=== PATIENT | male | born 1965 | race African-American/Black ===

== ENCOUNTER 2024-08-13 17:07 | Inpatient (IN) | payer MEDICARE, OTHER ==
[~2024-08-13] VITALS: Ht 177.8 cm; Wt 98.9 kg
[2024-08-13 17:37] LABS: BASOPHILS % (AUTO) 0.4 % (0.0-2.0); EOSINOPHILS % (AUTO) 0.3 % (0.0-6.0); HEMATOCRIT 29 % (39-51); HEMOGLOBIN 9.5 g/dL (13.5-17.5); LYMPHOCYTES # (AUTO) 2.4 K/uL (0.8-4.8); LYMPHOCYTES % (AUTO) 20.4 % (20.0-44.0); MEAN CORPUSCULAR HEMOGLOBIN 21 PG (26.0-33.0); MEAN CORPUSCULAR HGB CONC 33 g/dl (31.0-36.0); MEAN CORPUSCULAR VOLUME 66 fL (80-96); MONOCYTES # (AUTO) 1.1 K/uL (0.1-1.30); MONOCYTES % (AUTO) 9.5 % (2.0-12.0); NEUTROPHILS # (AUTO) 8.2 K/uL (1.8-8.9); NEUTROPHILS % (AUTO) 69.4 % (43.0-81.0); PLATELET COUNT (AUTO) 312 K/uL (150-450); RED BLOOD CELL COUNT(AUTO) 4.45 MIL/uL (4.5-6.0); RED CELL DISTRIBUTION WIDTH 17.1 % (11.5-15.0); WHITE BLOOD COUNT (AUTO) 11.8 K/uL (4.3-11.0)
[2024-08-13 17:51] LABS: INR 1.22 (0.91-1.10); PARTIAL THROMBOPLASTIN TIME 30.8 SEC (24.3-34.3); PROTHROMBIN TIME 12.8 SECS (9.2-11.1)
[2024-08-13] MEDS ORDERED: CALC500T88 PO (17:56)
[2024-08-13] MEDS ORDERED: AMLO5TAB4 PO (17:56)
[2024-08-13] MEDS ORDERED: METO50TA16 PO (17:56)
[2024-08-13] MEDS ORDERED: MULT-213 PO (17:56)
[2024-08-13] MEDS ORDERED: DULO30CA2 PO (17:56)
[2024-08-13] MEDS ORDERED: ATOR40TA PO (17:56)
[2024-08-13] MEDS ORDERED: CHLO25TA2 PO (17:56)
[2024-08-13] MEDS ORDERED: ASPI-992 PO (17:56)
[2024-08-13] MEDS ORDERED: ACET-868 PO (17:56)
[2024-08-13] MEDS ORDERED: POLY17PO4 PO (17:56)
[2024-08-13] MEDS ORDERED: DANT25CA PO (17:56)
[2024-08-13] MEDS ORDERED: CALC500T53 PO (17:56)
[2024-08-13] MEDS ORDERED: BISA10SU11 RC (17:56)
[2024-08-13] MEDS ORDERED: MELA3TAB41 PO (17:56)
[2024-08-13] MEDS ORDERED: DOCU100T2 PO (17:56)
[2024-08-13] MEDS ORDERED: IBUP-1955 PO (17:56)
[2024-08-13] MEDS ORDERED: MAGN400O6 PO (17:56)
[2024-08-13] MEDS ORDERED: SENN8.6T19 PO (17:56)
[2024-08-13] MEDS ORDERED: CHOL100043 PO (17:56)
[2024-08-13] MEDS ORDERED: HYDR-4209 PO (17:56)
[2024-08-13] MEDS ORDERED: NA P133E RC (17:56)
[2024-08-13] MEDS ORDERED: [UNRECOGNIZED DRUG - CODE] PO (17:56)
[2024-08-13] MEDS ORDERED: EPLE25TA10 PO (17:56)
[2024-08-13] MEDS ORDERED: ASCO-352 PO (17:56)
[2024-08-13] MEDS ORDERED: LEVE500T20 PO (17:56)
[2024-08-13] MEDS ORDERED: FERR325T28 PO (17:56)
[2024-08-13 18:01] LABS: ALCOHOL, BLOOD < 3 mg/dL (0-10); CARBON DIOXIDE 25 mmol/L (21-32); CHLORIDE 103 mmol/L (98-107); CREATININE 1.6 mg/dL (0.6-1.3); GLUCOSE 99 mg/dL (74-106); POTASSIUM 3.1 mmol/L (3.5-5.1); SERUM AMMONIA 31 umol/L (11-32); SODIUM SERUM 140 mmol/L (136-145); UREA NITROGEN, BLOOD 38 mg/dL (7-18)
[2024-08-13 18:19] LABS: ALANINE AMINOTRANSFERASE 17 U/L (12-78); ALBUMIN 2.7 g/dL (3.4-5.0); ALKALINE PHOSPHATASE 126 U/L (46-116); ASPARTATE AMINOTRANSFERASE 18 U/L (15-37); BILIRUBIN,DIRECT 0.3 mg/dL (0.0-0.2); BILIRUBIN,TOTAL 1.3 mg/dL (0.2-1.0); NT-PRO BNP 1189 pg/mL (0-125); TOTAL PROTEIN, SERUM 8.9 g/dL (6.4-8.2)
[2024-08-13] MEDS ORDERED: POTASSIUM CHLORIDE 20 MEQ POWDER PACKET ONE (19:26)
[2024-08-13] MEDS: POTASSIUM CHLORIDE 20 MEQ POWDER PACKET PO ONE (19:30)
[2024-08-13 20:00] VITALS: BP 123/66; TEMP 98.2; O2SAT 96
[2024-08-13 20:31] LABS: CANNABINOID, URINE NEGATIVE (NEGATIVE); COCCAINE, URINE NEGATIVE (NEGATIVE); PHENCYCLIDINE SCREEN,URINE NEGATIVE (NEGATIVE)
[2024-08-13 21:00] VITALS: BP 123/66; TEMP 98.2; O2SAT 96
[2024-08-13] MEDS ORDERED: EPLERENONE 75 MG PO SCH (21:00)
[2024-08-13] MEDS ORDERED: ONDANSETRON HCL/PF 4 MG/2 ML VIAL IVP PRN (21:00)
[2024-08-13] MEDS ORDERED: BISACODYL SUPP (10 MG) 10 MG/SUPP.RECT SUPP.RECT RC PRN (21:00)
[2024-08-13] MEDS: IV NS 0.9% 1,000 ML IV PRN (21:16)
[2024-08-13] MEDS: ATORVASTATIN 40 MG TABLET PO SCH (21:49)
[2024-08-13] MEDS: SENNOSIDES 8.6 MG TABLET PO SCH (21:49)
[2024-08-13] MEDS: FERROUS SULFATE (325 MG) 325 MG/TAB TABLET PO SCH (21:49)
[2024-08-13] MEDS: PREGABALIN 100 MG CAPSULE PO SCH (21:50)
[2024-08-13] MEDS: AMLODIPINE BESYLATE 5 MG TABLET PO SCH (21:50)
[2024-08-13] MEDS: LEVETIRACETAM (250 MG) 250 MG TABLET PO SCH (21:50)
[2024-08-13] MEDS: ENOXAPARIN SODIUM 40 MG/0.4 ML DISP.SYRIN SQ SCH (21:51)
[2024-08-13 22:17] LABS: AMPHETAMINE, URINE NEGATIVE (NEGATIVE); BARBITURATE, URINE NEGATIVE (NEGATIVE); BENZODIAZEPINE, URINE NEGATIVE (NEGATIVE); OPIATE, URINE NEGATIVE (NEGATIVE)
[2024-08-13] MEDS ORDERED: DANTROLENE SODIUM 25 MG CAPSULE ONE (22:36)
[2024-08-13] MEDS: DANTROLENE SODIUM 25 MG CAPSULE PO SCH (22:46)
[2024-08-14] VITALS (7 sets, daily range): BP systolic 101–160; BP diastolic 53–71; TEMP 97.9–99.6; O2SAT 96–98
[2024-08-14 00:55] LABS: ANISOCYTOSIS 1+; BASOPHILS % (MANUAL) 0 % (0.0-2.0); EOSINOPHILS % (MANUAL) 0 % (0-4); LYMPHOCYTES % (MANUAL) 18 % (16-48); MONOCYTES % (MANUAL) 9 % (0-11.0); NEUTROPHILS % (MANUAL) 73 (42-76); OVALOCYTES 1+; PLATELET ESTIMATE ADEQUATE
[2024-08-14 07:08] LABS: BASOPHILS % (AUTO) 0.2 % (0.0-2.0); EOSINOPHILS % (AUTO) 0.2 % (0.0-6.0); HEMATOCRIT 29 % (39-51); HEMOGLOBIN 9.4 g/dL (13.5-17.5); LYMPHOCYTES # (AUTO) 1.5 K/uL (0.8-4.8); MEAN CORPUSCULAR HEMOGLOBIN 22 PG (26.0-33.0); MEAN CORPUSCULAR HGB CONC 32 g/dl (31.0-36.0); MEAN CORPUSCULAR VOLUME 67 fL (80-96); MONOCYTES # (AUTO) 0.9 K/uL (0.1-1.30); MONOCYTES % (AUTO) 8.5 % (2.0-12.0); NEUTROPHILS # (AUTO) 8.2 K/uL (1.8-8.9); NEUTROPHILS % (AUTO) 77.1 % (43.0-81.0); PLATELET COUNT (AUTO) 302 K/uL (150-450); RED BLOOD CELL COUNT(AUTO) 4.35 MIL/uL (4.5-6.0); WHITE BLOOD COUNT (AUTO) 10.6 K/uL (4.3-11.0)
[2024-08-14 07:09] LABS: CALCIUM, SERUM 8.8 mg/dL (8.5-10.1); CREATININE 1.3 mg/dL (0.6-1.3); MAGNESIUM 2.2 mg/dL (1.8-2.4); PHOSPHORUS 3.3 mg/dL (2.5-4.9); POTASSIUM 3.3 mmol/L (3.5-5.1)
[2024-08-14] MEDS: CALCIUM CARBONATE (1250) 500 MG TABLET PO SCH (09:28)
[2024-08-14] MEDS: DULOXETINE HCL 30 MG CAPSULE.DR PO SCH (09:28)
[2024-08-14] MEDS: POLYETHYLENE GLYCOL 3350 17 GM POWD.PACK PO SCH (09:28)
[2024-08-14] MEDS: MULTIVITAMIN/LUTEIN/MINERALS 1 TAB PO SCH (09:29)
[2024-08-14] MEDS: ASPIRIN 325 MG TABLET PO SCH (09:29)
[2024-08-14] MEDS: CHOLECALCIFEROL 1,000 UNIT TABLET (VIT D3) PO SCH (09:29)
[2024-08-14] MEDS: ASCORBIC ACID 500 MG TABLET PO SCH (09:29)
[2024-08-14] MEDS: DOCUSATE SODIUM 100 MG CAPSULE PO SCH (09:29)
[2024-08-14] MEDS: POTASSIUM CHLORIDE 20 MEQ TAB.PRT.SR PO SCH (10:34)
[2024-08-14] MEDS: CEFEPIME 1 GM in IV D5W 50 ML IV SCH (12:01)
[2024-08-14 14:01] LABS: THYROID STIMULATING HORMONE 0.55 uIU/mL (0.358-3.74)
[2024-08-14] MEDS ORDERED: IOHEXOL-350 100 ML VIAL IV ONE (14:55)
[2024-08-14] MEDS ORDERED: IV NS 0.9% 250 ML IV ONE (14:56)
[2024-08-14] MEDS: SOD FERRIC GLUC 125 MG in IV NS 0.9% 100 ML IV SCH (15:49)
[2024-08-14] MEDS: ACETAMINOPHEN 325 MG TABLET PO PRN (18:33)
[2024-08-14 18:54] LABS: APPEARANCE,URINE CLOUDY (CLEAR); BILIRUBIN,URINE 1+ (NEGATIVE); BLOOD, URINE TRACE-INTA Ery/uL (NEGATIVE); COLOR,URINE YELLOW (YELLOW); KETONES,URINE TRACE mg/dL (NEGATIVE); LEUKOCYTE ESTERASE ,URINE 2+ (NEGATIVE); NITRITE, URINE POSITIVE (NEGATIVE); PROTEIN,URINE 1+ mg/dl (NEGATIVE); UGLUCOSE NEGATIVE (NEGATIVE)
[2024-08-14 19:36] LABS: URINE AMORPHOUS URATE Many /HPF (None Seen)
[2024-08-14 19:37] LABS: BACTERIA,URINE Many /HPF (None Seen); SQUAMOUS EPITHELIAL CELL,UR None Seen /HPF (None Seen)
[2024-08-14 19:38] LABS: ADD URINE CULTURE YES
[2024-08-14 19:39] LABS: RBC,URINE 0-2 /HPF (0-2)
[2024-08-15] VITALS (7 sets, daily range): BP systolic 115–165; BP diastolic 56–90; TEMP 97.3–100.2; O2SAT 96–99
[2024-08-15 08:06] LABS: FOLIC ACID 3.8 ng/mL (>3.0)
[2024-08-15 15:07] LABS: BASOPHILS % (AUTO) 0.2 % (0.0-2.0); HEMATOCRIT 26 % (39-51); HEMOGLOBIN 8.4 g/dL (13.5-17.5); LYMPHOCYTES # (AUTO) 1.6 K/uL (0.8-4.8); LYMPHOCYTES % (AUTO) 12.7 % (20.0-44.0); MEAN CORPUSCULAR HEMOGLOBIN 21 PG (26.0-33.0); MEAN CORPUSCULAR HGB CONC 32 g/dl (31.0-36.0); MEAN CORPUSCULAR VOLUME 66 fL (80-96); MONOCYTES % (AUTO) 7.8 % (2.0-12.0); NEUTROPHILS % (AUTO) 79.3 % (43.0-81.0); PLATELET COUNT (AUTO) 277 K/uL (150-450); RED BLOOD CELL COUNT(AUTO) 3.99 MIL/uL (4.5-6.0); RED CELL DISTRIBUTION WIDTH 17.1 % (11.5-15.0); WHITE BLOOD COUNT (AUTO) 12.7 K/uL (4.3-11.0)
[2024-08-15 16:10] LABS: ANISOCYTOSIS 2+; BASOPHILS % (MANUAL) 0 % (0.0-2.0); EOSINOPHILS % (MANUAL) 0 % (0-4); LYMPHOCYTES % (MANUAL) 13 % (16-48); MONOCYTES % (MANUAL) 6 % (0-11.0); NEUTROPHILS % (MANUAL) 81 (42-76); OVALOCYTES 1+; PLATELET ESTIMATE ADEQUATE
[2024-08-15 16:31] LABS: CALCIUM, SERUM 8.7 mg/dL (8.5-10.1); CREATININE 1.2 mg/dL (0.6-1.3); POTASSIUM 2.9 mmol/L (3.5-5.1)
[2024-08-16] VITALS: BP 121/55; TEMP 97.3; O2SAT 98
[2024-08-16 00:44] VITALS: BP 121/55; TEMP 97.3; O2SAT 98
[2024-08-16] MEDS: POTASSIUM CHLORIDE 10 MEQ/50 ML PREMIXED IVPB FOR PERIPHERAL LINE IV SCH (03:30)
[2024-08-16 03:54] VITALS: BP 122/73; TEMP 97.2; O2SAT 98
[2024-08-16 04:00] VITALS: BP 122/73; TEMP 97.2; O2SAT 98
[2024-08-16 08:00] VITALS: BP 136/71; TEMP 98.5
[2024-08-16 20:00] VITALS: BP 108/60; TEMP 99.7; O2SAT 93
[2024-08-17] VITALS: BP 97/69; TEMP 99.1; O2SAT 94
[2024-08-17 04:00] VITALS: BP 134/68; TEMP 99; O2SAT 97
[2024-08-17] MEDS: IV NS 0.9% 1,000 ML IV PRN (04:35)
[2024-08-17 08:00] VITALS: BP 198/60; O2SAT 97
== END 2024-08-17 10:55 | disposition short-term general hospital (02) | DRG 67 ==
LOC: ER 17:19 → TELE 19:27
PROVIDERS: ADMIT Nurse Practitioner Acute Care; ATTEND Nurse Practitioner Acute Care
DX: I66.02 Occlusion and stenosis of left middle cerebral artery (principal); G93.41 Metabolic encephalopathy; I21.A1 Myocardial infarction type 2; N17.0 Acute kidney failure with tubular necrosis; J69.0 Pneumonitis due to inhalation of food and vomit; E44.0 Moderate protein-calorie malnutrition; N39.0 Urinary tract infection, site not specified; D68.69 Other thrombophilia; I69.354 Hemiplegia and hemiparesis following cerebral infarction affecting left non-dominant side; I50.30 Unspecified diastolic (congestive) heart failure; E87.6 Hypokalemia; E66.01 Morbid (severe) obesity due to excess calories; E88.09 Other disorders of plasma-protein metabolism, not elsewhere classified; G40.909 Epilepsy, unspecified, not intractable, without status epilepticus; M19.90 Unspecified osteoarthritis, unspecified site; M89.8X9 Other specified disorders of bone, unspecified site; Z79.82 Long term (current) use of aspirin; Z95.1 Presence of aortocoronary bypass graft; Z95.5 Presence of coronary angioplasty implant and graft; Z20.822 Contact with and (suspected) exposure to COVID-19; Z74.09 Other reduced mobility; I11.0 Hypertensive heart disease with heart failure; D50.9 Iron deficiency anemia, unspecified; G93.89 Other specified disorders of brain; I35.1 Nonrheumatic aortic (valve) insufficiency; Z68.31 Body mass index [BMI] 31.0-31.9, adult; B96.89 Other specified bacterial agents as the cause of diseases classified elsewhere
CPT/HCPCS: 36415; 70450-TC; 70496-TC; 70498-TC; 71045-TC; 80048-TC; 80061-TC; 80076-TC; 81001; 82140-TC; 82607-TC; 82962-TC; 83735-TC; 83880; 83921; 84100-TC; 84425; 84443-TC; 84484-TC; 85025-TC; 85730-TC; 87081-TC; 87086-TC; 92526; 92611-TC; 93307-TC; 93970-TC; A4223; G0378; G0480; J0692; J1650; J2916; J3480; J7030; J7050; J7060; Q9967

== ENCOUNTER 2024-08-19 15:57 | Inpatient (IN) | payer MEDICARE, OTHER ==
[~2024-08-19] VITALS: Ht 177.8 cm; Wt 100.7 kg
[~2024-08-19 15:57] MED LIST: ACET-868 PO; AMLO5TAB4 PO; ASCO-352 PO; ASPI-992 PO; ATOR40TA PO; BISA10SU11 RC; CALC500T53 PO; CALC500T88 PO; CHLO25TA2 PO; CHOL100043 PO; DANT25CA PO; DOCU100T2 PO; DULO30CA2 PO; EPLE25TA10 PO; FERR325T28 PO; HYDR-4209 PO; IBUP-1955 PO; LEVE500T20 PO; MAGN400O6 PO; MELA3TAB41 PO; METO50TA16 PO; MULT-213 PO; NA P133E RC; POLY17PO4 PO; SENN8.6T19 PO; [UNRECOGNIZED DRUG - CODE] PO
[2024-08-19] MEDS ORDERED: CLOP75TA15 PO (16:44)
[2024-08-19 18:00] VITALS: BP 123/76; TEMP 98.1; O2SAT 98
[2024-08-19] MEDS ORDERED: ACETAMINOPHEN 325 MG TABLET PO PRN (18:00)
[2024-08-19] MEDS ORDERED: Z GUARD REMEDY 4 OZ OINT TP PRN (18:00)
[2024-08-19] MEDS ORDERED: MAG HYDROX/AL HYDROX/SIMETH 30 ML UDC PO PRN (18:00)
[2024-08-19] MEDS ORDERED: CALCIUM CARBONATE (1250) 500 MG TABLET PO PRN (18:00)
[2024-08-19] MEDS ORDERED: MAGNESIUM HYDROXIDE 30 ML UDC PO PRN (18:00)
[2024-08-19 19:06] LABS: INR 1.36 (0.91-1.10); PARTIAL THROMBOPLASTIN TIME 30.2 SEC (24.3-34.3); PROTHROMBIN TIME 14.1 SECS (9.2-11.1)
[2024-08-19 20:00] VITALS: BP 113/58; TEMP 98.6; O2SAT 100
[2024-08-19] MEDS: HEPARIN SODIUM, PORCINE 5000 UNITS/1 ML VIAL IV ONE (20:31)
[2024-08-19] MEDS: IV NS 0.9% 1,000 ML IV PRN (20:54)
[2024-08-19] MEDS: MELATONIN 3 MG TABLET PO SCH (20:54)
[2024-08-19] MEDS: HEPARIN INFUSION/D5W 500 ML IV PRN (21:20)
[2024-08-19] MEDS: ATORVASTATIN 40 MG TABLET PO SCH (22:16)
[2024-08-19] MEDS: SENNOSIDES 8.6 MG TABLET PO SCH (22:16)
[2024-08-19] MEDS: AMLODIPINE BESYLATE 5 MG TABLET PO SCH (22:18)
[2024-08-19] MEDS: ONDANSETRON HCL/PF 4 MG/2 ML VIAL IVP PRN (23:00)
[2024-08-20] VITALS (7 sets, daily range): BP systolic 117–160; BP diastolic 53–72; TEMP 97.5–98.8; O2SAT 10–100
[2024-08-20 03:32] LABS: BASOPHILS % (AUTO) 0.2 % (0.0-2.0); EOSINOPHILS % (AUTO) 0.1 % (0.0-6.0); HEMATOCRIT 30 % (39-51); HEMOGLOBIN 9.7 g/dL (13.5-17.5); LYMPHOCYTES # (AUTO) 1.6 K/uL (0.8-4.8); LYMPHOCYTES % (AUTO) 12.2 % (20.0-44.0); MEAN CORPUSCULAR HEMOGLOBIN 22 PG (26.0-33.0); MEAN CORPUSCULAR HGB CONC 32 g/dl (31.0-36.0); MEAN CORPUSCULAR VOLUME 67 fL (80-96); MONOCYTES % (AUTO) 7.8 % (2.0-12.0); NEUTROPHILS # (AUTO) 10.8 K/uL (1.8-8.9); NEUTROPHILS % (AUTO) 79.7 % (43.0-81.0); PLATELET COUNT (AUTO) 342 K/uL (150-450); RED BLOOD CELL COUNT(AUTO) 4.47 MIL/uL (4.5-6.0); RED CELL DISTRIBUTION WIDTH 17.3 % (11.5-15.0); WHITE BLOOD COUNT (AUTO) 13.5 K/uL (4.3-11.0)
[2024-08-20 03:43] LABS: CALCIUM, SERUM 8.8 mg/dL (8.5-10.1); CREATININE 1.4 mg/dL (0.6-1.3); MAGNESIUM 2.1 mg/dL (1.8-2.4); PHOSPHORUS 4.1 mg/dL (2.5-4.9)
[2024-08-20 04:20] LABS: LYMPHOCYTES % (MANUAL) 22 % (16-48); MONOCYTES % (MANUAL) 5 % (0-11.0); NEUTROPHILS % (MANUAL) 73 (42-76)
[2024-08-20 04:21] LABS: ANISOCYTOSIS 2+; OVALOCYTES 1+; PLATELET ESTIMATE ADEQUATE
[2024-08-20 08:24] LABS: INR 1.51 (0.91-1.10); PROTHROMBIN TIME 15.6 SECS (9.2-11.1)
[2024-08-20 08:28] LABS: PARTIAL THROMBOPLASTIN TIME 100.2 SEC (24.3-34.3)
[2024-08-20] MEDS: DANTROLENE SODIUM 25 MG CAPSULE PO SCH (08:35)
[2024-08-20] MEDS: MULTIVIT W/MINERALS 1 TAB TABLET PO SCH (08:35)
[2024-08-20] MEDS: FERROUS SULFATE (325 MG) 325 MG/TAB TABLET PO SCH (08:35)
[2024-08-20] MEDS: CHOLECALCIFEROL 1,000 UNIT TABLET (VIT D3) PO SCH (08:35)
[2024-08-20] MEDS: ASCORBIC ACID 500 MG TABLET PO SCH (08:35)
[2024-08-20] MEDS: LEVETIRACETAM (250 MG) 250 MG TABLET PO SCH (08:35)
[2024-08-20] MEDS: DULOXETINE HCL 30 MG CAPSULE.DR PO SCH (08:35)
[2024-08-20] MEDS: ASPIRIN 325 MG TABLET PO SCH (08:36)
[2024-08-20] MEDS: POLYETHYLENE GLYCOL 3350 17 GM POWD.PACK PO SCH (08:36)
[2024-08-20] MEDS: CLOPIDOGREL BISULFATE 75 MG TABLET PO SCH (08:36)
[2024-08-20] MEDS: METOPROLOL TARTRATE 50 MG TABLET PO SCH (08:38)
[2024-08-20] MEDS ORDERED: EPLERENONE 75 MG PO SCH (09:00)
[2024-08-20] MEDS: POTASSIUM CHLORIDE 20 MEQ POWDER PACKET PO SCH (09:29)
[2024-08-20 13:13] LABS: INR 1.51 (0.91-1.10); PROTHROMBIN TIME 15.6 SECS (9.2-11.1)
[2024-08-20 13:18] LABS: PARTIAL THROMBOPLASTIN TIME 132.5 SEC (24.3-34.3)
[2024-08-20] MEDS: APIXABAN 5 MG TABLET PO SCH (16:41)
[2024-08-20] MEDS: PIPERACILLIN /TAZOBACTAM 3.375 G in IV D5W 50 ML IV SCH (17:15)
[2024-08-21] VITALS (7 sets, daily range): BP systolic 66–184; BP diastolic 44–62; TEMP 93.6–98.2; O2SAT 96–100
[2024-08-21 16:45] LABS: BASOPHILS % (AUTO) 0.3 % (0.0-2.0); EOSINOPHILS % (AUTO) 0.3 % (0.0-6.0); HEMATOCRIT 27 % (39-51); HEMOGLOBIN 8.6 g/dL (13.5-17.5); LYMPHOCYTES # (AUTO) 1.6 K/uL (0.8-4.8); LYMPHOCYTES % (AUTO) 15.8 % (20.0-44.0); MEAN CORPUSCULAR HEMOGLOBIN 22 PG (26.0-33.0); MEAN CORPUSCULAR HGB CONC 32 g/dl (31.0-36.0); MEAN CORPUSCULAR VOLUME 69 fL (80-96); MONOCYTES # (AUTO) 0.8 K/uL (0.1-1.30); MONOCYTES % (AUTO) 7.3 % (2.0-12.0); NEUTROPHILS # (AUTO) 7.9 K/uL (1.8-8.9); NEUTROPHILS % (AUTO) 76.3 % (43.0-81.0); PLATELET COUNT (AUTO) 278 K/uL (150-450); RED BLOOD CELL COUNT(AUTO) 3.94 MIL/uL (4.5-6.0); RED CELL DISTRIBUTION WIDTH 18.3 % (11.5-15.0); WHITE BLOOD COUNT (AUTO) 10.4 K/uL (4.3-11.0)
[2024-08-21 17:10] LABS: ALBUMIN 2.2 g/dL (3.4-5.0); BILIRUBIN,TOTAL 0.8 mg/dL (0.2-1.0); CALCIUM, SERUM 8.3 mg/dL (8.5-10.1); CREATININE 1.6 mg/dL (0.6-1.3); MAGNESIUM 2.1 mg/dL (1.8-2.4); PHOSPHORUS 3.9 mg/dL (2.5-4.9); POTASSIUM 3.1 mmol/L (3.5-5.1); TOTAL PROTEIN, SERUM 7.7 g/dL (6.4-8.2)
[2024-08-21 17:56] LABS: BASOPHILS % (MANUAL) 0 % (0.0-2.0); EOSINOPHILS % (MANUAL) 2 % (0-4); LYMPHOCYTES % (MANUAL) 18 % (16-48); MONOCYTES % (MANUAL) 6 % (0-11.0); NEUTROPHILS % (MANUAL) 74 (42-76); PLATELET ESTIMATE ADEQUATE
[2024-08-21 17:57] LABS: ANISOCYTOSIS 1+; OVALOCYTES 1+
[2024-08-21] MEDS: POTASSIUM CHLORIDE 20 MEQ TAB.PRT.SR PO ONE (18:20)
[2024-08-22] VITALS (8 sets, daily range): BP systolic 117–170; BP diastolic 29–58; TEMP 97.7–98.4; O2SAT 97–100
[2024-08-22 08:06] LABS: BASOPHILS % (AUTO) 0.4 % (0.0-2.0); EOSINOPHILS % (AUTO) 0.3 % (0.0-6.0); HEMATOCRIT 23 % (39-51); HEMOGLOBIN 7.5 g/dL (13.5-17.5); LYMPHOCYTES # (AUTO) 1.5 K/uL (0.8-4.8); LYMPHOCYTES % (AUTO) 15.2 % (20.0-44.0); MEAN CORPUSCULAR HEMOGLOBIN 22 PG (26.0-33.0); MEAN CORPUSCULAR HGB CONC 32 g/dl (31.0-36.0); MEAN CORPUSCULAR VOLUME 69 fL (80-96); MONOCYTES # (AUTO) 0.7 K/uL (0.1-1.30); NEUTROPHILS # (AUTO) 7.5 K/uL (1.8-8.9); NEUTROPHILS % (AUTO) 77.1 % (43.0-81.0); PLATELET COUNT (AUTO) 247 K/uL (150-450); RED BLOOD CELL COUNT(AUTO) 3.37 MIL/uL (4.5-6.0); RED CELL DISTRIBUTION WIDTH 17.9 % (11.5-15.0); WHITE BLOOD COUNT (AUTO) 9.7 K/uL (4.3-11.0)
[2024-08-22 08:18] LABS: CREATININE 1.3 mg/dL (0.6-1.3); POTASSIUM 3.1 mmol/L (3.5-5.1)
[2024-08-22] MEDS ORDERED: POTASSIUM CHLORIDE 20 MEQ TAB.PRT.SR PO SCH (11:00)
[2024-08-22] MEDS: POTASSIUM CHLORIDE 20 MEQ POWDER PACKET PO ONE (11:36)
[2024-08-22] MEDS: IV 1/2NS 1000 ML 1,000 ML IV PRN (11:37)
[2024-08-22 13:26] LABS: HEMOGLOBIN 7.3 g/dL (13.5-17.5)
[2024-08-23] VITALS: BP 120/63; TEMP 97.9; O2SAT 99
[2024-08-23] MEDS: ACETAMINOPHEN 325 MG TABLET PO PRN (03:23)
[2024-08-23 04:00] VITALS: BP 118/52; TEMP 98.1; O2SAT 98
[2024-08-23 06:39] LABS: BASOPHILS % (AUTO) 0.3 % (0.0-2.0); EOSINOPHILS % (AUTO) 0.6 % (0.0-6.0); HEMATOCRIT 23 % (39-51); HEMOGLOBIN 7.3 g/dL (13.5-17.5); LYMPHOCYTES # (AUTO) 1.3 K/uL (0.8-4.8); LYMPHOCYTES % (AUTO) 17.8 % (20.0-44.0); MEAN CORPUSCULAR HEMOGLOBIN 22 PG (26.0-33.0); MEAN CORPUSCULAR HGB CONC 32 g/dl (31.0-36.0); MEAN CORPUSCULAR VOLUME 68 fL (80-96); MONOCYTES # (AUTO) 0.6 K/uL (0.1-1.30); MONOCYTES % (AUTO) 8.7 % (2.0-12.0); NEUTROPHILS # (AUTO) 5.4 K/uL (1.8-8.9); NEUTROPHILS % (AUTO) 72.6 % (43.0-81.0); PLATELET COUNT (AUTO) 243 K/uL (150-450); RED BLOOD CELL COUNT(AUTO) 3.39 MIL/uL (4.5-6.0); RED CELL DISTRIBUTION WIDTH 17.9 % (11.5-15.0); WHITE BLOOD COUNT (AUTO) 7.4 K/uL (4.3-11.0)
[2024-08-23 07:45] LABS: CALCIUM, SERUM 8.1 mg/dL (8.5-10.1); MAGNESIUM 1.5 mg/dL (1.8-2.4)
[2024-08-23 08:00] VITALS: BP 142/68; TEMP 98.6; O2SAT 96
[2024-08-23 08:59] LABS: OCCULT BLOOD STOOL NEGATIVE (NEGATIVE)
[2024-08-23] MEDS: POTASSIUM CHLORIDE 20 MEQ TAB.PRT.SR PO ONE (10:15)
[2024-08-23] MEDS: Magnesium 1GM/D5W 100ML PREMIX 100 ML IV SCH (10:44)
[2024-08-23 13:49] VITALS: BP 144/52; O2SAT 98
[2024-08-23 16:00] VITALS: BP 141/103; TEMP 98.6; O2SAT 98
[2024-08-23 20:00] VITALS: BP_SYST 134; BP_DIAS 49; BP_DIAS 75; TEMP 97.9; O2SAT 96; O2SAT 99
[2024-08-24] VITALS: BP 135/52; TEMP 97.7; O2SAT 98
[2024-08-24 04:00] VITALS: BP 123/63; TEMP 97.9; O2SAT 100
[2024-08-24 07:32] LABS: BASOPHILS % (AUTO) 0.2 % (0.0-2.0); EOSINOPHILS % (AUTO) 0.3 % (0.0-6.0); HEMATOCRIT 25 % (39-51); HEMOGLOBIN 8.1 g/dL (13.5-17.5); LYMPHOCYTES # (AUTO) 1.2 K/uL (0.8-4.8); MEAN CORPUSCULAR HEMOGLOBIN 23 PG (26.0-33.0); MEAN CORPUSCULAR HGB CONC 33 g/dl (31.0-36.0); MEAN CORPUSCULAR VOLUME 69 fL (80-96); MONOCYTES # (AUTO) 0.8 K/uL (0.1-1.30); MONOCYTES % (AUTO) 8.2 % (2.0-12.0); NEUTROPHILS # (AUTO) 7.2 K/uL (1.8-8.9); NEUTROPHILS % (AUTO) 78.3 % (43.0-81.0); PLATELET COUNT (AUTO) 253 K/uL (150-450); RED BLOOD CELL COUNT(AUTO) 3.57 MIL/uL (4.5-6.0); RED CELL DISTRIBUTION WIDTH 17.8 % (11.5-15.0); WHITE BLOOD COUNT (AUTO) 9.2 K/uL (4.3-11.0)
[2024-08-24 07:40] LABS: CALCIUM, SERUM 8.3 mg/dL (8.5-10.1); CREATININE 0.9 mg/dL (0.6-1.3); MAGNESIUM 1.4 mg/dL (1.8-2.4); PHOSPHORUS 2.7 mg/dL (2.5-4.9); POTASSIUM 2.9 mmol/L (3.5-5.1)
[2024-08-24 08:39] VITALS: BP 105/92; TEMP 99.3; O2SAT 99
[2024-08-24] MEDS ORDERED: APIX5TAB PO (12:39)
[2024-08-24] MEDS: MAGNESIUM OXIDE 400 MG TABLET PO SCH (13:26)
[2024-08-24] MEDS: POTASSIUM CHLORIDE 20 MEQ TAB.PRT.SR PO SCH (13:28)
[2024-08-24 16:00] VITALS: BP 144/80; TEMP 97.6; O2SAT 100
[2024-08-24 18:39] VITALS: BP 144/80
== END 2024-08-24 18:41 | DRG 64 ==
LOC: TELE 15:57 → MED 08-24 13:53
PROVIDERS: ADMIT Nurse Practitioner Acute Care; ATTEND Nurse Practitioner Acute Care
DX: I63.40 Cerebral infarction due to embolism of unspecified cerebral artery (principal); G93.41 Metabolic encephalopathy; I50.33 Acute on chronic diastolic (congestive) heart failure; R53.2 Functional quadriplegia; D68.59 Other primary thrombophilia; E44.0 Moderate protein-calorie malnutrition; G93.40 Encephalopathy, unspecified; I69.354 Hemiplegia and hemiparesis following cerebral infarction affecting left non-dominant side; G93.49 Other encephalopathy; E87.0 Hyperosmolality and hypernatremia; I13.0 Hypertensive heart and chronic kidney disease with heart failure and stage 1 through stage 4 chronic kidney disease, or unspecified chronic kidney disease; I50.32 Chronic diastolic (congestive) heart failure; G40.802 Other epilepsy, not intractable, without status epilepticus; F80.2 Mixed receptive-expressive language disorder; I63.9 Cerebral infarction, unspecified; E78.5 Hyperlipidemia, unspecified; E66.9 Obesity, unspecified; Z68.31 Body mass index [BMI] 31.0-31.9, adult; E87.6 Hypokalemia; D50.9 Iron deficiency anemia, unspecified; Z95.3 Presence of xenogenic heart valve; Z95.1 Presence of aortocoronary bypass graft; Z79.82 Long term (current) use of aspirin; Z79.02 Long term (current) use of antithrombotics/antiplatelets; Z79.01 Long term (current) use of anticoagulants; Z86.79 Personal history of other diseases of the circulatory system; N18.9 Chronic kidney disease, unspecified; G40.909 Epilepsy, unspecified, not intractable, without status epilepticus; Z79.899 Other long term (current) drug therapy; I25.10 Atherosclerotic heart disease of native coronary artery without angina pectoris; E88.09 Other disorders of plasma-protein metabolism, not elsewhere classified; Z87.440 Personal history of urinary (tract) infections; Z95.820 Peripheral vascular angioplasty status with implants and grafts; R79.89 Other specified abnormal findings of blood chemistry; J32.8 Other chronic sinusitis; I66.02 Occlusion and stenosis of left middle cerebral artery; I71.21 Aneurysm of the ascending aorta, without rupture
CPT/HCPCS: 36415; 71045-TC; 80048-TC; 80053-TC; 82272-TC; 82550-TC; 83735-TC; 84100-TC; 85025-TC; 85027-TC; 85610-TC; 85730-TC; 87040-TC; 92507-TC; 92521; 92526; 92611-TC; 97110-TC; 97530-TC; A4223; G0378; J1644; J2405; J2543; J3475; J3490; J7030; J7060